=== PATIENT | female | born 2000 | race Caucasian/White ===

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

== ENCOUNTER 2022-06-29 23:00 | Emergency (ER) | payer BC, SELFPAY ==
[2022-06-29 23:01] VITALS: BP 135/90; PULSE 96; RESP 22; TEMP 37.1; O2SAT 98; BMI 24.5
[2022-06-29 23:03] VITALS: O2SAT 97
--- NOTE | 2022-06-29 23:18 | EX.ED.DYSGE1 ---
HPI History of Present Illness Chief Complaint: Shortness of Breath Narrative Narrative: 21-year-old female presenting with sore throat. She states it started about 30 minutes ago. Patient states that she ate at the dining patel at [employer] and had stirfry vegetables. She is allergic to peanuts. She does not know if there is any peanuts in this. Patient does not have any shortness of breath, abdominal pain, rashes. States he does not have an EpiPen at school with her. He has not taken any Benadryl. PFSH [facility] Medical History Anxiety Cerebral palsy Headache, migraine Hx of ovarian cyst PCOS (polycystic ovarian syndrome) Home Medications Iud 06/14/21 [History Last Taken Unknown] epinephrine 0.3 mg/0.3 mL injection, auto-injector (EpiPen 2-Yong) 0.3 mg (0.3 mL) IM Q4H PRN anaphylaxis #2 ea 10/12/21 [Rx Last Taken Unknown] epinephrine 0.3 mg/0.3 mL injection, auto-injector (EpiPen) 0.3 mg (0.3 mL) IM Q4H PRN anaphylaxis #2 ea 06/30/22 [Rx Last Taken Unknown] Allergy/AdvReac Type Severity Reaction Status Date / Time peanut Allergy Severe Angioedema Verified 06/29/22 23:04 Penicillins Allergy Angioedema Verified 06/29/22 23:04 Social History Smoking Status: Never smoker Electronic Cigarette Use: not used second hand exposure: No alcohol intake: current alcohol intake frequency: other substance use type: does not use EXAM Physical Exam Const Vital Signs: 06/29/22 23:01 06/29/22 23:03 06/30/22 00:00 Temperature 98.7 F Temperature Source Temporal Pulse Rate 96 68 Respiratory Rate 22 H 15 Respiratory Effort Normal Non-Labored Respiratory Depth Normal Respiratory Pattern Tachypnea Blood Pressure 135/90 H 121/77 H Blood Pressure Mean 105 91 Pulse Ox 98 97 Oxygen Delivery Method Room Air Room Air Room Air Positive well nourished General Appearance ED: NAD; Negative for pallor HEENT Reports moist mucous membranes Eyes PERRL and EOMs intact bilaterally Neck no lymphadenopathy Neck Narrative: No stridor Resp normal respiratory effort and clear to auscultation bilaterally Auscultation: Negative for rales, rhonchi or wheezes Cardio regular rate and regular rhythm GI normal to inspection, nondistended, normoactive bowel sounds Neuro oriented x3 and CN's II-XII intact bilaterally Sensorium / Orientation: alert Psych mental status grossly normal Skin no rashes or lesions noted General Skin Exam: Negative for jaundice or pallor MDM MDM MDM Narrative Medical decision making narrative: 21-year-old female presenting with sore throat and concern for allergic reaction. She told me this started about 30 to 40 minutes ago. She told nursing staff its been ongoing for 2 days. Objectively she states she feels like she is not getting enough air. Oropharynx is patent without stridor. Lungs clear to auscultation. No rashes. No abdominal pain. No cough or shortness of breath. Patient will be treated with Solu-Medrol, Benadryl, Pepcid. I went back and spoke with the patient. She confirms that she has had a sore throat for 30 to 40 minutes prior to arrival. She is concerned for allergic reaction. I do not see any objective findings of an allergic reaction. I spoke with the nurse who is caring for her and she states that she was told a couple of days of sore throat with worsening pain tonight. She refuses a strep swab. I went back to reevaluate the patient after she was medicated and she was resting comfortably however when I asked her about her throat she stated it hurt really bad. I reevaluated her and her throat appears normal. She does not have any stridor. Her vital signs have been normal. She is not hypoxic or in any respiratory distress. I asked her if she wanted something for the pain and she was amenable to some Toradol. She stated that she feels as if something is in her throat. I offered to x-ray this area and she declined stating that it is too expensive. I still do not believe she needs epinephrine. I did ask her if she had a history of anxiety and she told me that she did not although she has a documented history of anxiety from Dr. English's office. I spoke with the nurse caring for her and she states when she was in the room she was talking on the phone without any difficulty. After Toradol patient feels better. It is possible she had an allergic reaction but there is no sign of anaphylaxis. Her vital signs are normal. She did not require epinephrine here. I did refill a prescription for an EpiPen as she states that she does not have one. Patient counseled that with her peanut allergy she should carry this everywhere. She acknowledged understanding. Impression: 1. Allergic reaction 2. Sore throat Lab Data Attestation: I reviewed the patient's lab results. Discharge Plan Triage Chief Complaint: Shortness of Breath ED Provider: Jose Rodríguez Dx/Rx/DC Orders Instructions: Self-Care for Sore Throats, ED General Allergic Reactions Prescriptions: New epinephrine [EpiPen] 0.3 mg/0.3 mL auto-injector 0.3 mg IM Q4H PRN (Reason: anaphylaxis) Qty: 2 0RF No Action Iud epinephrine [EpiPen 2-Yong] 0.3 mg/0.3 mL auto-injector 0.3 mg IM Q4H PRN (Reason: anaphylaxis) Qty: 2 0RF Primary Care Provider: SARAH LEACH Referrals: [facility] Doctor,Out of [Non-Staff] - Disposition Disposition: Home, Self Care
[2022-06-29] MEDS: DiphenhydrAMINE 50 MG/ML Syringe 25 MG IV (23:25)
[2022-06-29] MEDS: Famotidine 200 MG/20 ML MDV 20 MG in 0.9% Normal Saline (Pres. free 8 ML 300 MG IV (23:28)
[2022-06-29] MEDS: MethylPREDNISolone 125 MG/2 ML Vial IV (23:28)
[2022-06-30] VITALS: BP 121/77; PULSE 68; RESP 15; O2SAT 97
[2022-06-30] MEDS: Ketorolac 15 MG/ML Vial IV (00:15)
[2022-06-30 00:51] VITALS: PULSE 88; RESP 15; O2SAT 98
== END 2022-06-30 00:53 | disposition home or self-care (01) ==
PROVIDERS: Emergency Provider Student in an Organized Health Care Education/Training Program; Visit Provider Student in an Organized Health Care Education/Training Program
DX: T78.40XA Allergy, unspecified, initial encounter (principal); J02.9 Acute pharyngitis, unspecified; Z91.010 Allergy to peanuts
CPT/HCPCS: 96365; 96375; 99283; A4216; J3490

== ENCOUNTER 2022-10-06 22:47 | Emergency (ER) | payer BC, SELFPAY ==
[2022-10-06 22:48] VITALS: BP 145/78; PULSE 96; RESP 16; TEMP 36.6; O2SAT 98; BMI 24.1
[2022-10-06 23:10] LABS: Bacteria 0 SEEN /hpf (None Seen); Mucous, Urine 0 SEEN /hpf (<or=2+); Red Blood Cells-Urine 0 SEEN /hpf (0-5)
[2022-10-06 23:14] LABS: Color, Urine Yellow (Yellow); Glucose, Dipstick Normal (Normal); Ketone-Dipstick 50 mg/dl (Negative); Leukocyte Esterase-Dipstick 25 /ul (Negative); Nitrite-Dipstick Negative (Negative); Occult Blood-Urine Negative /ul (Negative); Protein-Dipstick Negative (Negative); Specific Gravity, Urine 1.015 (1.002-1.030); Urine Bilirubin Dipstick Negative (Negative); Urine Clarity Sl. Cloudy (Clear); Urine Urobilinogen Normal (Normal)
[2022-10-06 23:22] LABS: Amorphous Sediment 4+
[2022-10-06 23:23] LABS: Squamous Epithelial Cells - UA 5-10 SEEN /hpf (5-10); White Blood Cells 0-5 SEEN /hpf (0-5)
[2022-10-06 23:24] LABS: Internal QC Validated? YES +Cl - CLEAR BKGD; Pregnancy, Serum, hCG Quali. NEGATIVE Negative
[2022-10-06 23:26] LABS: Absolute Neutrophil Count 3.6 X10^3/uL (2.0-7.7); Basophil# 0.06 X10^3/uL; Basophil% 0.7 % (0-1); Eosinophil# 0.07 X10^3/uL; Eosinophils% 0.9 % (0-5); Hematocrit 45.1 % (37-47); Mean Corp Hgb Conc 35.5 g/dL (32-36); Mean Corpuscular Hgb 31.1 pg (27.0-32.0); Mean Corpuscular Volume 87.7 fL (81-99); Mean Platelet Vol. 9.7 fl (6.2-12.0); Monocyte# 0.67 X10^3/uL; Monocyte% 8.1 % (0-10); NRBC Flagged by Analyzer 0.2 % (0-5); Neutrophil # 3.62 X10^3/uL (2.7-7.7); Platelet Count 253 K/mm3 (150-450); RBC Distribution Width CV 11.4 % (11.6-14.6); RBC Distribution Width SD 36.9 fl (35.1-43.9); Red Blood Count 5.14 M/mm3 (4.2-5.4); White Blood Count 8.2 K/mm3 (4.4-11.0)
[2022-10-06 23:27] LABS: Anion Gap 11 (5-15); BUN 9 mg/dL (7-18); BUN/Creat Ratio 13.2 RATIO (10-20); Calcium,Total 9.2 mg/dL (8.5-10.1); Chloride 107 mmol/L (98-107); Creatinine, Serum 0.68 mg/dL (0.55-1.02); EST Glomerular Filtration Rate 117 mL/min (>60); Est Glom Filt Rate - Afr Amer 142 mL/min (>60); Estimated Creatinine Clearance 100.41 ml/min; Glucose 102 mg/dL (74-106); Potassium 3.4 mmol/L (3.5-5.1); Sodium Level 143 mmol/L (136-145)
--- NOTE | 2022-10-07 00:01 | ED.VIS.GI ---
HPI HPI - GI History of Present Illness Chief Complaint: Abd Pain Narrative Narrative: 21-year-old female who denies significant past medical history presents with reported fever of 102 ?F yesterday. She states her fever broke at midnight. She presents because she is having left upper quadrant abdominal pain, and states that she was nauseated and vomited once today with blood in it. It was less than a cup of blood, and it may have been more streaked. She states that it was alarming. She does not take any blood thinners. She denies any problems with bowel movements. She is having pain in the left upper quadrant of his abdomen and no previous surgeries. Sometimes it is a sharp and stabbing pain and is worse with lying flat. Nothing seems to make it better. PFSH PFSH Medical History Anxiety Cerebral palsy Headache, migraine Hx of ovarian cyst PCOS (polycystic ovarian syndrome) Home Medications Iud 06/14/21 [History Last Taken Unknown] epinephrine 0.3 mg/0.3 mL injection, auto-injector (EpiPen 2-Yong) 0.3 mg (0.3 mL) IM Q4H PRN anaphylaxis #2 ea 10/12/21 [Rx Last Taken Unknown] epinephrine 0.3 mg/0.3 mL injection, auto-injector (EpiPen) 0.3 mg (0.3 mL) IM Q4H PRN anaphylaxis #2 ea 06/30/22 [Rx Last Taken Unknown] ondansetron 4 mg disintegrating tablet 4 mg PO Q6H PRN nausea and vomiting #12 tabs 10/07/22 [Rx Last Taken Unknown] Allergy/AdvReac Type Severity Reaction Status Date / Time peanut Allergy Severe Angioedema Verified 10/06/22 22:50 Penicillins Allergy Angioedema Verified 10/06/22 22:50 Social History Smoking Status: Never smoker Electronic Cigarette Use: not used second hand exposure: No alcohol intake: current alcohol intake frequency: other substance use type: does not use ROS ROS ED ROS Narrative Constitutional: No fever, no chills. HEENT: No sore throat. No neck pain. No loss of vision. No rhinorrhea. Cardiovascular: No chest pain. No palpitations. No pedal edema. Respiratory: No cough, no shortness of breath. Abdominal: Left upper quadrant abdominal pain. Positive nausea. Positive blood with vomiting. No jeanna hematemesis more than a cup. Genitourinary: No dysuria. No hematuria. Musculoskeletal: No myalgias. No arthralgias. Neurologic: No headaches. No dizziness. No lightheadedness. Skin: No rash. No change in color. Psychiatric: No depression. No anxiety. EXAM Physical Exam Narrative Exam Narrative: Afebrile. Vital signs noted. HEENT: Normocephalic. Atraumatic. PERRL, EOMI. Neck soft and supple. No point tenderness or step off. Cardiovascular: Regular rate and rhythm. No murmurs, rubs, or gallops appreciated. Respiratory: No tachypnea. Lungs clear to auscultation bilaterally. Gastrointestinal: Abdomen soft, mild tenderness in the left upper quadrant, with normoactive bowel sounds. No rebound or guarding. Neurological: Awake. Alert. Nonfocal, nonlateralizing. Skin: No rash. Normal color. No pallor. Musculoskeletal: No pedal edema. Full range of motion extremities. Const Vital Signs: 10/06/22 22:48 10/07/22 00:39 Temperature 97.8 F Temperature Source Temporal Pulse Rate 96 79 Respiratory Rate 16 15 Blood Pressure 145/78 H 111/71 Blood Pressure Mean 100 84 Pulse Ox 98 98 Oxygen Delivery Method Room Air Room Air MDM MDM MDM Narrative Medical decision making narrative: Urinalysis was obtained and reviewed per nursing protocol. I do feel it is a contaminated specimen with 5-10 squamous epithelial cells, however there are 0-5 WBCs and negative nitrites. I do not feel that antibiotics are indicated. There is amorphous sediment but 0 bacteria. CBC shows normal white count of 8.2, hemoglobin stable at 16.0, potassium slightly low at 3.4 but normal sodium of 143. Serum is negative. Given her left upper quadrant pain, I will obtain CT imaging. CT imaging radiology report was reviewed and there is no acute process intra-abdominal leak, spleen appears normal size. At this point in time, she has not had any vomiting in the ED. She complained of back pain, so she was administered Toradol 15 mg intravenously. At this point in time, I feel she be discharged safely home with follow-up. She was written a prescription for Zofran for her vomiting. I do feel that she had a small Domitila-Gonzalez tear and is not having jeanna hematemesis. Return instructions were reviewed. Disposition is discharged home in stable condition. Lab Data Attestation: I reviewed the patient's lab results. Labs: Laboratory Results - last 24 hr 10/06/22 10/06/22 10/06/22 22:50 23:05 23:05 WBC 8.2 RBC 5.14 Hgb 16.0 H Hct 45.1 MCV 87.7 MCH 31.1 MCHC 35.5 RDW Std Deviation 36.9 RDW Coeff of Shlomo 11.4 L Plt Count 253 MPV 9.7 Immature Gran % (Auto) 1.300 H Neut % (Auto) 44.0 L Lymph % (Auto) 45.0 H Motley % (Auto) 8.1 Eos % (Auto) 0.9 Baso % (Auto) 0.7 Absolute Neuts (auto) 3.6 Absolute Lymphs (auto) 3.70 Nucleated RBC % 0.2 Sodium 143 Potassium 3.4 L Chloride 107 Carbon Dioxide 25.0 Anion Gap 11 BUN 9 Creatinine 0.68 Estim Creat Clear Calc 100.41 Est GFR (MDRD) Af Amer 142 Est GFR (MDRD) Non-Af 117 BUN/Creatinine Ratio 13.2 Glucose 102 Calcium 9.2 Total Bilirubin Direct Bilirubin AST ALT Alkaline Phosphatase Total Protein Albumin Globulin Lipase Serum , Qual Urine Color Yellow Urine Clarity Sl. Cloudy Urine pH 8.0 Ur Specific [place] 1.015 Urine Protein Negative Urine Glucose (UA) Normal Urine Ketones 50 H Urine Occult Blood Negative Urine Nitrite Negative Urine Bilirubin Negative Urine Urobilinogen Normal Ur Leukocyte Esterase 25 H Urine RBC 0 SEEN Urine WBC 0-5 SEEN Ur Squamous Epith Cells 5-10 SEEN Amorphous Sediment 4+ Urine Bacteria 0 SEEN Urine Mucus 0 SEEN 10/06/22 10/06/22 23:05 23:05 WBC RBC Hgb Hct MCV MCH MCHC RDW Std Deviation RDW Coeff of Shlomo Plt Count MPV Immature Gran % (Auto) Neut % (Auto) Lymph % (Auto) Mot[place] % (Auto) Eos % (Auto) Baso % (Auto) Absolute Neuts (auto) Absolute Lymphs (auto) Nucleated RBC % Sodium Potassium Chloride Carbon Dioxide Anion Gap BUN Creatinine Estim Creat Clear Calc Est GFR (MDRD) Af Amer Est GFR (MDRD) Non-Af BUN/Creatinine Ratio Glucose Calcium Total Bilirubin 0.30 Direct Bilirubin 0.16 AST 18 ALT 19 Alkaline Phosphatase 66 Total Protein 8.0 Albumin 4.5 Globulin 3.5 Lipase 82 Serum , Qual NEGATIVE Urine Color Urine Clarity Urine pH Ur Specific [place] Urine Protein Urine Glucose (UA) Urine Ketones Urine Occult Blood Urine Nitrite Urine Bilirubin Urine Urobilinogen Ur Leukocyte Esterase Urine RBC Urine WBC Ur Squamous Epith Cells Amorphous Sediment Urine Bacteria Urine Mucus Radiography Diagnostic Testing: Clinical Impression(s) from Imaging Studies Abdomen/Pelvis CT 10/07/22 00:17 IMPRESSION: Negative CT abdomen and pelvis without oral or IV contrast. Electronically Signed: Rodger Crowe MD at 0:47 EST , Discharge Plan Triage Chief Complaint: Abd Pain ED Provider: Jorge Doyle Dx/Rx/DC Orders Clinical Impression: Nausea and vomiting, Abdominal pain, LUQ, Domitila-Gonzalez tear Instructions: Domitila-Gonzalez Tear, ED Abdominal Pain Unkn Cause Fem, ED Vomiting (Adult) Prescriptions: New ondansetron 4 mg tablet,disintegrating 4 mg PO Q6H PRN (Reason: nausea and vomiting) Qty: 12 0RF No Action Iud epinephrine [EpiPen 2-Yong] 0.3 mg/0.3 mL auto-injector 0.3 mg IM Q4H PRN (Reason: anaphylaxis) Qty: 2 0RF epinephrine [EpiPen] 0.3 mg/0.3 mL auto-injector 0.3 mg IM Q4H PRN (Reason: anaphylaxis) Qty: 2 0RF Primary Care Provider: Care Physician,No Primary Referrals: [facility] Doctor,Out of [Non-Staff] - As soon as possible Activity Restrictions/Additional Instructions: Your work-up was negative today. Start a clear liquid diet and advance as tolerated. Return with increased pain, fever, new or worsening symptoms. Disposition Disposition: Home, Self Care
--- NOTE | 2022-10-07 00:17 | CT_ITS ---
INDICATION: Pain EXAMINATION: CT ABDOMEN AND PELVIS WITHOUT CONTRAST - CT Abdomen And Pelvis W/O Contrast Injection TECHNIQUE: Helically acquired images were obtained of the abdomen and pelvis without oral or IV contrast. A radiation dose optimization technique was used for this scan. IV Contrast dosage and agent: None. Oral contrast: None. COMPARISON: None. FINDINGS: LOWER CHEST: Lung bases are clear. No cardiomegaly or pericardial effusion. LIVER: Homogeneous. No focal mass. GALLBLADDER AND BILIARY TREE: No calcified gallstones. No gallbladder distension or wall edema. No intra- or extrahepatic biliary ductal dilation. PANCREAS: No focal cystic or solid mass. SPLEEN: Normal size without focal cystic or solid mass. ADRENAL GLANDS: No nodules. KIDNEYS AND URETERS: Normal renal size and position. No hydronephrosis. PERITONEUM: No ascites or free air. No other fluid collection. BOWEL: Normal appendix. No stomach or bowel distension. No focal inflammatory change. LYMPH NODES: No enlarged mesenteric or retroperitoneal lymph nodes. VESSELS: Aorta is non-dilated. URINARY BLADDER: Unremarkable. REPRODUCTIVE ORGANS: IUD in good position. ABDOMINAL WALL: No discrete abdominal or pelvic wall hernia. BONES: No lytic or blastic abnormality. CT/Abdomen/Pelvis without Cont IMPRESSION: Negative CT abdomen and pelvis without oral or IV contrast. Electronically Signed: Rodger Crowe MD at 0:47 EST ,
[2022-10-07 00:33] LABS: AST(SGOT) 18 U/L (15-37); Alanine Aminotransfer ALT/SGPT 19 U/L (13-56); Albumin, Serum 4.5 g/dL (3.2-5.0); Alkaline Phosphatase 66 U/L (45-117); Bilirubin, Direct 0.16 mg/dL (0.00-0.30); Globulin 3.5 g/dL (2.2-4.2); Lipase 82 U/L (73-393)
[2022-10-07 00:39] VITALS: BP 111/71; PULSE 79; RESP 15; O2SAT 98
[2022-10-07] MEDS: 0.9% Normal Saline 1,000 ML 1000 ML IV (00:39)
[2022-10-07] MEDS: Ketorolac 15 MG/ML Vial IV (01:33)
[2022-10-07 01:35] VITALS: BP 114/73; PULSE 95; RESP 15; O2SAT 98
== END 2022-10-07 01:46 | disposition home or self-care (01) ==
PROVIDERS: Emergency Provider Emergency Medicine; Visit Provider Emergency Medicine
DX: K22.6 Gastro-esophageal laceration-hemorrhage syndrome (principal); R11.2 Nausea with vomiting, unspecified; M54.9 Dorsalgia, unspecified
CPT/HCPCS: 74176; 80048; 80076; 81001; 83690; 84703; 85025; 96361; 96374; 99283; A4216

== ENCOUNTER 2023-09-03 00:35 | Emergency (ER) | payer BC, SELFPAY ==
[2023-09-03 00:37] VITALS: BP 128/82; PULSE 104; RESP 16; TEMP 36.7; O2SAT 100; BMI 25.6
[2023-09-03 00:42] VITALS: BP 128/82; PULSE 104; RESP 16; TEMP 36.7; O2SAT 100
--- NOTE | 2023-09-03 01:02 | CT_ITS ---
STUDY: CT BRAIN WITHOUT CONTRAST REASON FOR EXAM: Female, 22 years old. Head injury RADIATION DOSAGE (If Supplied By Facility): CTDIvol = ( 44.99 ) mGy, DLP = ( 779.24 ) mGycm TECHNIQUE: Transaxial CT imaging of the brain was performed without administration of intravenous contrast material. Individualized dose optimization techniques were used for this CT. COMPARISON: April 27, 2021 CT scan head FINDINGS: Normal soft tissue structures. Normal calvarium. Normal size ventricles and extra-axial spaces for the patient''s age. Normal white matter tracts of the cerebral hemispheres. Normal basal ganglia and thalami. Normal brainstem. Normal cerebellum. There is no intracranial hemorrhage. There are no findings of an acute ischemic infarction. Normal visualized paranasal sinuses. CT/Brain/Head without Contrast IMPRESSION: Normal unenhanced CT scan of the brain. Electronically Signed: Eunice Sherman MD at 2:03 EST ,
--- NOTE | 2023-09-03 01:03 | EX.ED.GENINJ ---
HPI History of Present Illness Chief Complaint: Head Injury Detail of Chief Complaint: Head injury Informant: patient Narrative Narrative: Patient presents to the emergency department after head injury. Patient states that she was sitting on the floor in her dorm when some of the bed frames that were stacked on top of the cot came down and struck her on her head. No loss of consciousness. Patient states that she saw black for a time. She has some blurred vision from the right eye. She had no vomiting. PFSH PFSH Medical History Anxiety Cerebral palsy Headache, migraine Hx of ovarian cyst PCOS (polycystic ovarian syndrome) Home Medications Iud 06/14/21 [History Last Taken Unknown] epinephrine 0.3 mg/0.3 mL injection, auto-injector (EpiPen 2-Yong) 0.3 mg (0.3 mL) IM Q4H PRN anaphylaxis #2 ea 10/12/21 [Rx Last Taken Unknown] epinephrine 0.3 mg/0.3 mL injection, auto-injector (EpiPen) 0.3 mg (0.3 mL) IM Q4H PRN anaphylaxis #2 ea 06/30/22 [Rx Last Taken Unknown] ondansetron 4 mg disintegrating tablet 4 mg PO Q6H PRN nausea and vomiting #12 tabs 10/07/22 [Rx Last Taken Unknown] Allergy/AdvReac Type Severity Reaction Status Date / Time peanut Allergy Severe Angioedema Verified 09/03/23 00:37 Penicillins Allergy Angioedema Verified 09/03/23 00:37 Social History Smoking Status: Never smoker Electronic Cigarette Use: not used second hand exposure: No alcohol intake: current alcohol intake frequency: other substance use type: does not use ROS ROS ED Review of Systems ROS Unobtainable: other Constitutional Constitutional ED: Reports lethargy; Denies chills, fever(s), sweats or weight loss Eyes Eyes: Reports blurry vision; Denies change in vision or diplopia ENT ENT ED: Reports other Details: Headache ; Denies rhinorrhea or sore throat Cardiovascular Cardiovascular: Denies chest pain, orthopnea or racing heartbeat Respiratory/Chest Respiratory/Chest: Reports dyspnea and dyspnea on exertion; Denies cough, orthopnea or sputum Gastrointestinal Gastrointestinal: Denies abdominal pain, diarrhea, nausea or vomiting Genitourinary Genitourinary ED: Denies dysuria, hematuria or urinary frequency Musculoskeletal Musculoskeletal: Denies arthralgias, back pain, myalgias or neck pain Integumentary Denies abscess, Abrasions or rash Neurologic Neurologic: Denies headache(s) or weakness Psychiatric Psychiatric: Denies anxiety, depression or suicidal thoughts Endocrine Endocrinology: Denies polydipsia, polyphagia or polyuria Hematologic/Lymphatic Hematologic/Lymphatic: Denies easy bleeding, easy bruising or lymphadenopathy Allergic/Immunologic Allergic/Immunologic ED: Denies mouth swelling, tongue swelling or urticaria EXAM Physical Exam Const Vital Signs: 09/03/23 00:37 09/03/23 00:42 09/03/23 00:42 Temperature 98.1 F 98.1 F Temperature Source Oral Oral Pulse Rate 104 H 104 H Respiratory Rate 16 16 Respiratory Effort Normal Respiratory Depth Normal Respiratory Pattern Normal Blood Pressure 128/82 H 128/82 H Blood Pressure Mean 97 97 Pulse Ox 100 100 Oxygen Delivery Method Room Air Room Air Room Air Positive well nourished and well developed General Appearance ED: well developed and NAD HEENT Reports TM's clear and moist mucous membranes normocephalic and atraumatic; Negative for trauma or tenderness Tympanic Membrane ED: Yes TM's clear Eyes PERRL and EOMs intact bilaterally General Eye ED: Negative for pale conjunctiva or scleral icterus Neck no lymphadenopathy, supple and no JVD General: Negative for tenderness Chest Wall inspection of chest normal and palpation of chest normal Chest: Negative for tenderness Resp normal respiratory effort and clear to auscultation bilaterally Effort and Inspection: Negative for respiratory distress or pain with movement Auscultation: Negative for rhonchi, wheezes or diminished lung sounds Cardio regular rate, regular rhythm, S1 normal heart sound, S2 normal heart sound and no murmurs Peripheral Pulses: pulses 2+ throughout GI normal to inspection, nondistended, normoactive bowel sounds, soft to palpation, non-tender, non-distended and no masses Back/Spine no CVA tenderness and no thoracic nor lumbar tenderness Extremity normal to inspection General Extremety ED: Negative for edema General Extremity: Negative for edema Neuro oriented x3, CN's II-XII intact bilaterally, no sensory deficits noted and gait normal Sensorium / Orientation: awake, alert, oriented to person, oriented to place and oriented to time Motor Exam: strength 5/5 throughout and strength abnormal Psych mental status grossly normal Skin no rashes or lesions noted and no wounds MDM MDM MDM Narrative Medical decision making narrative: Patient presents with head injury when bed frames fell onto her head. No external evidence of trauma noted to her head. There is no evidence of trauma to her globe. She has a very difficult time with exam and following my instructions to allow immediate evaluate her eye. Her pupil is reactive to light and I do not see any evidence of hyphema. I am able to perform partial funduscopic exam and I am able to visualize the retina briefly. I do not suspect a hyphema or vitreous hemorrhage. We attempted to do visual acuity and she was 20/50 with the left eye and stated that she could not see the chart with the right eye. Also complaining of some ringing in her ear. I did obtain a CT scan of her brain without contrast that was unremarkable. This point etiology of her inability to see with the right eye is unclear. Will discuss with ophthalmology to arrange close follow-up. Ophthalmology will be able to see patient tomorrow if her symptoms do not improve. I will give her the ophthalmology phone number. I also gave Dr. Mei patient's phone number so that he may reach her tomorrow. Radiography Diagnostic Testing: Clinical Impression(s) from Imaging Studies Brain CT 09/03/23 01:02 IMPRESSION: Normal unenhanced CT scan of the brain. Electronically Signed: Eunice Sherman MD at 2:03 EST Reading Location ID and State: [address] [place] [address] Tel , Service support , Discharge Plan Triage Chief Complaint: Head Injury ED Provider: Jesus Grullon Dx/Rx/DC Orders Clinical Impression: Blurred vision, Closed head injury Instructions: ED Blurred Vision, ED Concussion Prescriptions: No Action Iud epinephrine [EpiPen 2-Yong] 0.3 mg/0.3 mL auto-injector 0.3 mg IM Q4H PRN (Reason: anaphylaxis) Qty: 2 0RF epinephrine [EpiPen] 0.3 mg/0.3 mL auto-injector 0.3 mg IM Q4H PRN (Reason: anaphylaxis) Qty: 2 0RF ondansetron 4 mg tablet,disintegrating 4 mg PO Q6H PRN (Reason: nausea and vomiting) Qty: 12 0RF Primary Care Provider: HANY SMITH Referrals: Donovan Mei MD [Med Staff - Active Staff] - 1 Day Care Physician,No Primary [Non-Staff] - Disposition Disposition: Home, Self Care Discharge Date/Time: 09/03/23 02:45
== END 2023-09-03 02:45 | disposition home or self-care (01) ==
PROVIDERS: Emergency Provider Emergency Medicine; Visit Provider Emergency Medicine
DX: H53.8 Other visual disturbances (principal); G80.9 Cerebral palsy, unspecified; S09.90XA Unspecified injury of head, initial encounter; H93.19 Tinnitus, unspecified ear; W20.8XXA Other cause of strike by thrown, projected or falling object, initial encounter; Y92.169 Unspecified place in school dormitory as the place of occurrence of the external cause; Z97.5 Presence of (intrauterine) contraceptive device; R06.00 Dyspnea, unspecified
CPT/HCPCS: 70450; 99283